=== PATIENT | female | born 1985 | race Hispanic/Latino ===

== ENCOUNTER 2017-01-11 16:38 | Inpatient (IN) | payer OTHER ==
[~2017-01-11] VITALS: Ht 157.5 cm; Wt 73.9 kg
[2017-01-11] MEDS ORDERED: Lactated Ringer's 1,000 ML IV PRN (17:33)
[2017-01-11] MEDS ORDERED: Oxytocin 30 Units/500 mL LR 30 UNITS in IV Premix 1 EACH IV PRN ×2 (17:35→18:55)
[2017-01-11] MEDS ORDERED: Hemorrhage Kit, Post Partum XX ONE ×2 (17:35→18:55)
[2017-01-11] MEDS ORDERED: Oxytocin 10 Unit/mL Inj IM PRN ×2 (17:35→18:55)
[2017-01-11] MEDS ORDERED: Sodium Chloride LOK Flush 10 mL Syringe IVFLUSH PRN (17:35)
[2017-01-11] MEDS ORDERED: Methylergonovine 0.2 mg/mL Inj IM PRN ×2 (17:35→18:55)
[2017-01-11] MEDS ORDERED: Carboprost 250 mCg/mL Inj IM PRN ×2 (17:35→18:55)
[2017-01-11] MEDS ORDERED: fentaNYL-PF 50 mCg/mL 2 mL Inj IVPUSH PRN (17:35)
[2017-01-11] MEDS ORDERED: Lactated Ringer's 1,000 ML IV SCH (18:52)
[2017-01-11] MEDS ORDERED: Witch Hazel-Glycerin Pads TOPICAL PRN (18:55)
[2017-01-11] MEDS ORDERED: Benzocaine (Dermoplast) 20% 60 Gm Spray TOPICAL PRN (18:55)
[2017-01-11] MEDS ORDERED: oxyCODONE-Acetamin 5-325 mg Tablet PO PRN (18:55)
[2017-01-11] MEDS ORDERED: LANOlin HPA 7 Gm Ointment TOPICAL PRN (18:55)
--- NOTE | 2017-01-11 21:15 | HP ---
[address] [address] HISTORY AND PHYSICAL PATIENT: RANI RICARDO : 1985 MR#: [id number] ADMIT: 01/11/2017 JOB ID: [id number] DATE: 01/11/2017 ADMISSION DIAGNOSIS: Active labor at term. HISTORY OF PRESENT ILLNESS: The patient is 31 years old, 1, para 0, at 38 weeks gestational age by 14 week ultrasound. Has her complicated with the followin. Gastroesophageal reflux disease with H. pylori controlled with ranitidine. 2. History of joint pain and transient facial numbness, referred to fiscal manager. Will follow up . 3. Chronic constipation. She is Colace with high-fiber diet. 4. History of infertility for two years. This was spontaneous. Patient had spontaneous rupture of membranes this morning followed by contractions and presented to triage with 9 cm dilated cervix, admitted for active labor. PAST OBSTETRICAL HISTORY: Primigravida. PAST GYNECOLOGIC HISTORY: No history of STDs. No history of abnormal Pap. PAST MEDICAL HISTORY: Chronic constipation, gastroesophageal reflux disease, joint pain. PAST SURGICAL HISTORY: Insignificant. MEDICATIONS: 1. vitamins. 2. Ranitidine b.i.d. 3. Vitamin D. 4. Pyridoxine. 5. Doxylamine at early for nausea and vomiting that resolved. ALLERGIES: No known drug allergies. SOCIAL HISTORY: Denied any alcohol consumption. Denied any drugs of abuse. Denied any cigarette smoking. LABORATORIES: O-positive, antibody negative, rubella immune, serology nonreactive, hepatitis B surface antigen negative. HIV nonreactive. UA negative. Urine cultures negative. Quad screen negative. Gonorrhea and Chlamydia cultures negative. One hour glucose screening within normal limits at 27 weeks. GBS cultures negative on January 06, 2017. PHYSICAL EXAMINATION: Patient is alert, oriented x3. Vital signs are 107/77 for blood pressure. Respirations are 16. Pulse is 99. Temperature 36.8 degrees centigrade. Heart is regular rate and rhythm. Positive S1, S2. Lungs clear to auscultation bilaterally. Abdomen: Gravid uterus, nontender. Positive bowel sounds. Lower extremities: No calf tenderness appreciated bilaterally. Cervical exam: Anterior lip 100% effaced, 0 station, vertex presentation. heart tracing is showing baseline of 135 beats per minute, positive accelerations, no decelerations, moderate variability, category 1 heart tracing. ASSESSMENT AND PLAN: The patient is a 31-year-old, 1, para 0, at 38 weeks by 14 week ultrasound admitted for active labor and spontaneous rupture of membranes. 1. Expectant management for labor. 2. Group B strep cultures negative. 3. Category 1 heart tracing. Continue external monitoring. 4. The patient opted for natural . All the above discussed in details with the patient who agreed to the plan. ROCKY
--- NOTE | 2017-01-11 21:25 | OP ---
[address] [address] OPERATIVE REPORT PATIENT: RANI RICARDO : 1985 MR#: [id number] ADMIT: 01/11/2017 JOB ID: [id number] DATE OF SURGERY: 01/11/2017 PREOPERATIVE DIAGNOSIS(ES): A 31-year-old, 1, para 0, at 38 weeks by 14 week ultrasound admitted for active labor and spontaneous rupture of membranes, progressed to fully dilated, +3 station. POSTOPERATIVE DIAGNOSIS(ES): A 31-year-old, 1, para 0, at 38 weeks by 14 week ultrasound admitted for active labor and spontaneous rupture of membranes, progressed to fully dilated, +3 station. PROCEDURE: Spontaneous vaginal delivery. SURGEON: Chester Pickard MD. ANESTHESIA: None. ESTIMATED BLOOD LOSS: 200 cc. COMPLICATIONS: None. FINDINGS: Single viable male with Apgars 8/9, weight is still pending. PROCEDURE IN DETAIL: Patient started to push efficiently. Infant's head delivered in right occiput anterior position. Nuchal cord x1 noted, reduced over the baby's head. Anterior shoulder delivered as well as posterior shoulder and rest of the body followed. Delayed cord clamping allowed for 60 seconds. placed over mom's chest. Cord clamped and cut. Placenta followed spontaneously. Upon inspection, it was noted to be intact with marginal insertion of a three-vessel cord. Inspection of the perineum revealed a second-degree perineal laceration at 6 O' clock position. Confirmed to be 2nd degree with rectal exam as well. 10 cc of 1% lidocaine injected for local analgesia and the laceration was repaired in two-layer fashion with 2-0 Vicryl suture. Good hemostasis assured. Patient tolerated the repair well. Mom and baby recovering in a stable condition in labor and delivery room. Good hemostasis assured. The sponge, needle and instrument counts were correct x2. Dr. Pickard was present and scrubbed for the entire procedure. [facility]
[2017-01-12 06:42] LABS: Mean Corpuscular Hemoglobin 29.8 pg (27.0-35.0)
[2017-01-12] MEDS ORDERED: Ascorbic Acid 500 mg Tablet PO SCH (08:00)
--- NOTE | 2017-01-12 09:10 | PCM.DIOB ---
Obstetrical Disch Instruction Date of Service: Jan 12, 2017 Dates of Hospitalization Date of Hospital Admission Jan 11, 2017 at 16:49 Providers Admitting Physician: Chester Pickard MD Primary Care Physician: Joshua Roberson MD Attending Physician: Chester Pickard MD Discharge Diagnosis Discharge Diagnosis status post normal vaginal delivery Problems: Diet Discharge Diet: No restrictions Activity Discharge Activity-General: No restrictions, Pelvic Rest for 6 weeks (no sex, no tampon and no douching), Be up and about, No lifting >10 pounds for 4-6 weeks Dressing and Incisional Care Hygiene: May shower Follow Up Plan Follow-up Provider (F9): Naomi Miller MD Follow-up appointment: Weeks (two) Call your provider for: Fever or Chills, Shortness of breath, Heavy vaginal bleeding, Heavy bleeding, Epigastric pain, Excessive constipation, Vaginal discomfort, Red painful breasts, Other (leg swelling, pain, nausea and vomiting , headache or change in vision) Naomi Miller MD Jan 12, 2017 09:10
[2017-01-12] MEDS ORDERED: IBUP-1827 PO (09:12)
[2017-01-12] MEDS ORDERED: DOCU-41 PO (09:12)
[2017-01-12] MEDS ORDERED: Lanolin TOPICAL (09:12)
[2017-01-12] MEDS ORDERED: OXYC1TAB24 PO (09:12)
--- NOTE | 2017-01-12 09:13 | PCM.DC.OB ---
Obstetrical Discharge Summary Date of Service Jan 12, 2017 Date of hospital admission Jan 11, 2017 at 16:49 Date of Discharge: Jan 12, 2017 Providers Admitting Physician: Chester Pickard MD Primary Care Physician: Joshua Roberson MD Attending Physician: Chester Pickard MD Diagnosis at Time of Discharge status post normal vaginal delivery Problems: Hospital Course: This is a 31 years old, 1, now para 1, presented at 38 weeks gestational presented with active labor and spontaneous rupture of membranes. 1. Status post Spontaneous vaginal delivery, 01/11/17. COMPLICATED WITH: 1. Gastroesophageal reflux disease with H. pylori controlled with ranitidine. 2. History of joint pain and transient facial numbness, referred to automotive sales professional. Will follow up . 3. Chronic constipation. She is Colace with high-fiber diet. 4. History of infertility for two years. This was spontaneous. Patient had spontaneous rupture of membranes this morning followed by contractions and presented to triage with 9 cm dilated cervix, admitted for active labor. OUTCOME: Single viable male with Apgars 8/9, 2695 g DISCHARGE DAY EXAM: day number 1, patient is ambulating, tolerating regular diet without nausea or vomiting and voiding without difficulty. Pain was well controlled. No chest pain, no headache or change in vision. VS: BP 98/55 HR 78 Respirations 16 Temp 36.8 General: Alert, Oriented X3 Lungs: Clear to Auscultation, Clear to Percussion Heart: Regular Rate/Rhythm, Normal S1, Normal S2 Abdomen: Fundus firm Extremities: No tenderness/swelling, Edema 1+ Lochia: normal. LABS: CBC Test 01/11/17 17:15 01/12/17 06:19 Hold Purple Top Tube Received (Received) White Blood Count 13.0th/mm3 (3.8-10.1) Red Blood Count 3.83mil/mm3 (3.90-5.20) Hemoglobin 11.4g/dL (12.0-15.6) Hematocrit 33.7% (35.0-46.0) Mean Corpuscular Volume 88.0fL (81-100) Mean Corpuscular Hemoglobin 29.8pg (27.0-35.0) Mean Corpuscular Hemoglobin Concent 33.8% (32.0-37.0) Red Cell Distribution Width 13.5% (12.3-15.4) Platelet Count 258bil/L (150-400) labs: O-positive, antibody negative, rubella immune, serology nonreactive, hepatitis B surface antigen negative. HIV nonreactive. UA negative. Urine cultures negative. Quad screen negative. Gonorrhea and Chlamydia cultures negative. One hour glucose screening within normal limits at 27 weeks. GBS cultures negative on January 06, 2017. Disposition: home. Discharge Condition: stable. Diet Discharge Diet: No restrictions Activity Discharge Activity-General: No restrictions, Pelvic Rest for 6 weeks (no sex, no tampon and no douching), Be up and about, No lifting >10 pounds for 4-6 weeks Dressing and Incisional Care Hygiene: May shower Follow Up Plan Follow-up Provider (F9): Vianney Miller MD Follow-up appointment: Weeks (two) Call your provider for: Fever or Chills, Shortness of breath, Heavy vaginal bleeding, Heavy bleeding, Epigastric pain, Excessive constipation, Vaginal discomfort, Red painful breasts, Other (leg swelling, pain, nausea and vomiting , headache or change in vision) . ([Lanolin]) 2 APPLIC/GM OINT 1 APPLIC TOPICAL PRN PRN PRN apply to nipples Prescribed by: VIANNEY MILLER MD Docusate Sodium (Colace) 100 Mg Capsule 100 MG PO BID Prescribed by: VIANNEY MILLER MD Ibuprofen (Ibuprofen) 600 Mg Tablet 600 MG PO Q6H PRN PRN For Mild Pain Prescribed by: VIANNEY MILLER MD oxyCODONE-Acetaminophen 5-325 mg (oxyCODONE-Acetaminophen 5-325 mg) 1 Each Tablet 1-2 TAB PO Q4H PRN PRN For Pain Prescribed by: MD Angela LUCIO Omaima A MD Jan 12, 2017 09:07
== END 2017-01-12 15:50 | disposition home or self-care (01) | DRG 775 ==
LOC: FBCO 16:38 → FBC 16:49
PROVIDERS: ADMIT Obstetrics & Gynecology; ATTEND Obstetrics & Gynecology
PROC: 10E0XZZ Delivery of Products of Conception, External Approach (ICD-10-PCS; principal; 2017-01-11)
PROC: 0KQM0ZZ Repair Perineum Muscle, Open Approach (ICD-10-PCS; 2017-01-11)
DX: O69.81X0 Labor and delivery complicated by cord around neck, without compression, not applicable or unspecified (principal); O70.1 Second degree perineal laceration during delivery; Z3A.38 38 weeks gestation of pregnancy; Z37.0 Single live birth